=== PATIENT | female | born 2000 | race African-American/Black ===

== ENCOUNTER → 2022-07-30 | Outpatient (CLI) | payer OTHER ==
[~2022-07-30] MED LIST: GADOTERATE 0.5 MMOL/ML (CLARISCAN) 15 ML VIAL IV ONE; IOHEXOL 240 MGI/ML 50 ML (OMNIPAQUE) VIAL IV ONE; LIDOCAINE 1% INJ 10 ML VIAL INJ ONE; LIDOCAINE 1% INJ 10 ML VIAL ONE
--- NOTE | 2022-07-30 16:01 | Diagnostic Imaging Report ---
EXAMINATION: Magnetic resonance imaging of the right shoulder with intra-articular contrast. DATE: July 30, 2022. COMPARISON: Right shoulder arthrogram July 30, 2022. HISTORY: 21-year-old female, right shoulder pain. History of dislocation. TECHNIQUE: Magnetic Resonance Imaging sequences were performed of the shoulder following the intra-articular administration of contrast. FINDINGS: ROTATOR CUFF, LIGAMENTS, TENDONS, AND MUSCLES: The supraspinatus, infraspinatus, teres minor, and subscapularis tendons and muscles are intact. There is normal rotator cuff muscle bulk and signal. LONG HEAD OF BICEPS: The biceps labral attachment and long head of the biceps tendon is intact. The long head of the biceps tendon is normally positioned within the bicipital groove. GLENOHUMERAL JOINT: The humeral head is well positioned relative to the glenoid. There is a displaced tear involving the anterior labral ligamentous structures extending at least from the 3 o'clock position of the mid anterior labrum to approximately the 6 o'clock position of the inferior labrum. The posterior labrum is grossly intact. The superior labrum is intact. There is no identified paralabral cyst. The articular cartilage is grossly intact. There is no identified intra-articular body or prominent synovitis. ACROMIOCLAVICULAR JOINT: The acromioclavicular joint is normally aligned. The coracoclavicular and coracoacromial ligaments are intact. There are no degenerative changes of the acromioclavicular joint. BONE: There is a Hill-Sachs deformity measuring approximately 14 mm in length with a depth of 4 mm. There is associated marrow edema. This is consistent with a recent anterior shoulder dislocation. There is no os acromiale. The additional bone marrow signal is unremarkable. BURSAE AND SOFT TISSUES: The bursae and soft tissue surrounding the shoulder are unremarkable. IMPRESSION: 1. Displaced labral tear involving the anterior labrum extending from at least the 3 o'clock position to the mid anterior labrum to involve the entire anterior-inferior labrum and extends approximately to the 6 o'clock position of the inferior labrum. No associated paralabral cyst. 2. No discretely identified cartilage defect. 3. Acute Hill-Sachs deformity consistent with recent anterior shoulder dislocation. 4. Intact rotator cuff and proximal long head of the biceps tendon. 5. Intact acromioclavicular joint. Dictated by: Dictated on workstation # [id number]
--- NOTE | 2022-08-01 11:13 | Diagnostic Imaging Report ---
Right shoulder injection for for MRI INDICATION: Shoulder pain Following aseptic preparation of the skin and administration of local anesthesia a 21-gauge needle was advanced into the glenohumeral joint using fluoroscopic guidance. Subsequently a 12 mL mixture of sodium chloride, Omnipaque 300 and 0.4 mL of Clariscan was infused. The patient tolerated procedure well and was dismissed in good condition. IMPRESSION: There has been a successful injection of the right glenohumeral joint. MRI is pending for further study. Dictated by: Dictated on workstation # [id number]
== END ==
LOC: RAD 13:47
PROVIDERS: ATTEND Orthopaedic Surgery
DX: S43.004A Unspecified dislocation of right shoulder joint, initial encounter (principal); S43.402A Unspecified sprain of left shoulder joint, initial encounter; X58.XXXA Exposure to other specified factors, initial encounter
CPT/HCPCS: 23350; 73040; 73222